=== PATIENT | female | born 1985 | race Caucasian/White ===

== ENCOUNTER → 2020-03-15 | Outpatient (CLI) | payer OTHER ==
[~2020-03-15] MED LIST: CONTRAST GIVEN. MC PRN
[2020-03-15] MEDS: IOHEXOL 300 MG/ML 100ML VIAL. IJ ONE (10:30)
--- NOTE | 2020-03-15 12:52 | RAD ---
Examination: HYSTEROSALPINGOGRAM W/INJ History: Infertility despite attempts in the past 18 months. Comparison/Correlation: None Findings: Fluoroscopy was utilized for 0.8 minutes. A total of 5 images were acquired. Risks and benefits of hysterosalpingogram were discussed with the patient and informed consent was obtained. Cleansing of the external genitalia with Betadine was performed. Speculum was placed. Further cleansing of the cervical os and surrounding region with Betadine was performed. A dilator was utilized. After multiple attempts, successful placement of the tubing into the uterine cavity is noted. The balloon was inflated. Contrast was injected into the uterine cavity. Contrast is noted within both of the fallopian tubes and spillage into the peritoneal cavity seen bilaterally. Uterine cavity contours unremarkable. No suspicious filling defects suspected. Impression: Patency of the fallopian tubes noted. Uterine cavity is grossly unremarkable. Electronically signed by: Nazario Lira MD (03/15/2020 12:49 PM) [id number]
== END ==
LOC: RAD 10:12
PROVIDERS: ATTEND Obstetrics & Gynecology
DX: N97.9 Female infertility, unspecified (principal)
CPT/HCPCS: 58340; 74740; Q9967